=== PATIENT | male | born 1965 | race Caucasian/White ===

== ENCOUNTER → 2020-06-17 15:00 | Outpatient (CLI) | payer BC, SELFPAY ==
[2014-08-09 06:59] VITALS: BMI 24.3
[2020-06-17 16:35] LABS: PSA,Total- Diagnostic 1.77 ng/mL (0.0-4.0)
== END ==
PROVIDERS: PCP Family Medicine; Referring Provider Nurse Practitioner Adult Health; Visit Provider Nurse Practitioner Adult Health
DX: N41.1 Chronic prostatitis (principal)
CPT/HCPCS: 36415; 84153